=== PATIENT | male | born 1995 ===

== ENCOUNTER 2025-07-11 09:45 | Emergency (ER) | payer OTHER, SELFPAY ==
[2025-07-11] MEDS ORDERED: Ketorolac Tromethamine 30 MG (1 mL) VIAL ONE (09:58)
== END 2025-07-11 11:40 | disposition home or self-care (01) ==
LOC: ERS 09:45
DX: M25.512 Pain in left shoulder (principal); M54.50 Low back pain, unspecified; V89.2XXA Person injured in unspecified motor-vehicle accident, traffic, initial encounter
CPT/HCPCS: 72100; 96372; 99284; J1885